=== PATIENT | female | born 1995 | race American Indian/Alaskan Native ===

== ENCOUNTER 2018-10-12 12:21 | Emergency (ER) | payer OTHER ==
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
[2018-10-12 12:47] VITALS: BP 132/57
[2018-10-12 14:12] LABS: Bilirubin,Urine NEG (Negative); Blood,Urine NEG (Negative); Color,Urine Yellow (Yellow); Mucus,Urine FEW /HPF; Protein,Urine <15 mg/dL mg/dL (Negative); Urobilinogen,Urine < 2.0 mg/dL (<2.0)
[2018-10-12 14:14] LABS: HCG Qualitative,Urine Positive (Negative)
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
== END 2018-10-12 15:11 | disposition home or self-care (01) ==
LOC: ED 12:21
DX: O9A.211 Injury, poisoning and certain other consequences of external causes complicating pregnancy, first trimester (principal); S09.90XA Unspecified injury of head, initial encounter; Z3A.01 Less than 8 weeks gestation of pregnancy
CPT/HCPCS: 81001; 81025